=== PATIENT | female | born 1945 | race Hispanic/Latino ===

== ENCOUNTER 2024-08-17 12:44 | Emergency (ER) | payer OTHER ==
--- NOTE | 2024-08-17 13:35 | RAD REPORT ---
EXAMINATION: ONE VIEW CHEST XR CLINICAL INDICATION: CHEST PAIN TECHNIQUE: Frontal chest projection is submitted. Examination is limited by patient positioning and t echnique. COMPARISON: 05/03/2015 FINDINGS: Small nodular density is seen in the right lung base. The lungs are otherwise clear. The heart is nor mal in size. No displaced fractures identified. Hardware left humerus. IMPRESSION: No acute intrathoracic abnormalities. Small nodular focus in the right lung base. CT chest follow-up suggested on nonemergent basis.
[2024-08-17 13:57] LABS: Absolute Basophils 0.1 K/uL (0-0.5); Absolute Eosinophils 0.1 K/uL (0-0.5); Absolute Lymphocytes (CBC) 1.4 K/uL (0.7-4.9); Absolute Monocytes 0.7 K/uL (0.1-1.3); Absolute Neutrophil 6.1 K/uL (1.8-8.0); Basophils % 0.7 % (0-1.3); Hematocrit 41.6 % (36.0-45.0); Hemoglobin 14.3 g/dL (12.0-15.0); Lymphocytes % 16.8 % (15.3-44.8); MCH 29.9 pg (27.0-35.0); MCHC 34.3 g/dL (32.0-36.0); MCV 87.2 fL (80-100); MPV 8.7 fL (7.6-11.3); Monocytes % 8.1 % (3.3-12.3); Neutrophils % 73.4 % (41.7-73.7); Platelets 209 thou/uL (152-406); RBC Red Blood Cell Count 4.78 M/uL (3.86-4.86); Red Cell Distribution Width 13.4 % (12.1-15.2)
[2024-08-17 13:57] LABS: Specific Gravity 1.007 (1.005-1.030); Sqamous Epithelial <5 /HPF (None Seen); Urine Bacteria None Seen /HPF (<20); Urine Bilirubin NEGATIVE (Negative); Urine Blood Negative (Negative); Urine Clarity Clear (Clear); Urine Color Colorless (Yellow); Urine Culture Reflex Order NOT NEEDED; Urine Glucose NEGATIVE (Negative); Urine Ketones NEGATIVE (Negative); Urine Microscopic Reflex YN ORDER UMIC; Urine Mucus Slight /HPF (None Seen); Urine Nitrite NEGATIVE (Negative); Urine Protein NEGATIVE (Negative); Urine RBC <5 /HPF (None Seen); Urine Urobilinogen Normal (Normal); Urine WBC <5 /HPF (<5); Urine pH 6.5 (5.0-7.0)
--- NOTE | 2024-08-17 14:02 | RAD REPORT ---
EXAM: Right upper quadrant ultrasound. CLINICAL HISTORY: ABD PAIN COMPARISON: 05/22/2023 FINDINGS: Gallbladder: Normal. Bile ducts: No intrahepatic or extrahepatic biliary dilatation. Common bile duct measures 3-4 mm. Limited imaging of the liver shows no concerning finding. IMPRESSION: Unremarkable exam.
[2024-08-17 14:19] LABS: Albumin 3.5 g/dL (3.4-5.0); Albumin/Globulin Ratio 0.9 (1.1-1.8); Anion Gap 5.8 mEq/L (5.0-15.0); Bilirubin Total 0.5 mg/dL (0.2-1.0); Globulin 4.1 g/dL (2.3-3.5); Potassium 3.8 mEq/L (3.5-5.1); Protein, Total 7.6 g/dL (6.4-8.2); Troponin High Sensitivity 9.7 pg/mL (<58.9)
--- NOTE | 2024-08-17 15:04 | RAD REPORT ---
EXAM: CTA of the chest, abdomen and pelvis HISTORY: Chest pain and back pain ABD PAIN COMPARISON: None TECHNIQUE: Multiple contiguous axial images were obtained a CTA of the chest and abdomen with contras t per aortic dissection protocol. This involves 3D reconstructions, MIPs, volume rendered images and/or shaded surface rendering. One or more of the following dose reduction techniques were used: Au tomated exposure control, adjustment of the mA and/or kV according to patient size, and/or iterative reconstruction. Unless otherwise specified, incidental findings do not require dedicated im aging follow-up. Sagittal and coronal 3-D MIP reformats were performed. FINDINGS: PULMONARY ARTERIES: Normal in caliber without filling defects to suggest pulmonary emboli. ASCENDING THORACIC AORTA: Normal caliber without evidence of dissection or aneurysmal dilatation. DESCENDING THORACIC AORTA: Normal caliber without evidence of dissection or aneurysmal dilatation. ABDOMINAL AORTA: Normal caliber without evidence of dissection or aneurysmal dilatation. Mild atheros clerotic plaquing. CELIAC TRUNK: Mild ostial plaquing. SMA: Patent JONH: Patent RENAL ARTERIES: Ostial plaquing is present involving both renal arteries small accessory left renal a rtery present. MEDIASTINUM: No hilar or mediastinal lymphadenopathy. LUNGS: No focal infiltrates or masses. PLEURAL SPACE: No pleural effusion or pneumothorax. LIVER: Mild fatty liver is suspected.. SPLEEN: Unremarkable. PANCREAS: Unremarkable. KIDNEYS: Unremarkable. ADRENALS: Unremarkable. BOWEL: Mild to moderate sigmoid diverticulosis coli.. Moderate stool retention throughout the colon. RETROPERITONEUM: No lymphadenopathy. BONES: Unremarkable ADDITIONAL FINDINGS: 16 mm anterior left thyroid lobe nodule. IMPRESSION: No evidence of thoracic or abdominal aortic aneurysm or dissection. Mild atherosclerotic plaquing is present as detailed. Sigmoid diverticulosis coli without diverticulitis.
[2024-08-17] MEDS ORDERED: PANTOPRAZOLE 40 MG INJ ONE (15:29)
[2024-08-17] MEDS ORDERED: NA CHLORIDE 0.9% 1,000 ML ONE (15:30)
[2024-08-17] MEDS ORDERED: DICYCLOMINE HCL 10 MG CAP ONE (15:30)
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
[2024-08-17 17:12] VITALS: BP 122/61; TEMP 98.2; O2SAT 98
--- NOTE | 2024-08-18 11:09 | EKG ---
Test Date: 2024-08-17 Test Time: 14:02:02 Fishing Instructor: MEASUREMENT RESULTS: Intervals: Rate: 61 [place]: 156 QRSD: 112 QT: 460 QTc: 463 [place]: P: 55 [place]: 156 QRS: 37 T: 56 INTERPRETIVE STATEMENTS: Sinus rhythm with marked sinus arrhythmia Right bundle branch block Abnormal ECG No previous ECG available for comparison Electronically Signed On 08-18-24 11:07:41 CDT by César Lutz
== END 2024-08-17 16:35 | disposition home or self-care (01) ==
LOC: ER 12:44
DX: R10.84 Generalized abdominal pain (principal); Z85.3 Personal history of malignant neoplasm of breast
CPT/HCPCS: 85025; 81001; 36415; 84484; 83690; 80053; 71275; 74175; 71045; 76705; Q9967; J2470; J7030; 93005; 96361; 96374; 99285